=== PATIENT | male | born 1960 | race Caucasian/White ===

== ENCOUNTER 2017-05-29 16:55 | Emergency (ER) | payer OTHER ==
[~2017-05-29] VITALS: Ht 180.3 cm; Wt 119.2 kg
[~2017-05-29 16:55] MED LIST: ATOR-24 PO; HYOS0.1256 SL; IBUP-103 PO; MULTTAB58 PO; PHEN-549 PO
[2017-05-29 17:00] VITALS: TEMP 36.7; Ht 180.3 cm; Wt 119.2 kg
[2017-05-29] MEDS ORDERED: SODIUM CHLORIDE 0.9% 1000ML 1,000 ML IV STA (17:16)
[2017-05-29] MEDS ORDERED: ONDANSETRON INJ 2 MG/ML 2 ML VIAL IV STA (17:16)
[2017-05-29 17:24] LABS: BASO % 0.2 %; BASO ABS # 0.01 K/uL (0-0.2); COMPLETE YES; EOS % 0.2 %; HEMATOCRIT 45.2 % (42-52); IG% 0.2 %; LYMPH % 8.3 %; LYMPH ABS # 0.53 K/uL (1.2-3.4); MEAN CORPUSCULAR HEMOGLOBIN 30.7 pg (25-34); MEAN CORPUSCULAR HGB CONC 34.1 g/dl (32-36); MEAN PLATELET VOLUME 10.1 fL (7.4-10.4); MONO % 5.3 %; NEUT % 85.8 %; PLATELET COUNT 170 K/uL (130-400); RED BLOOD COUNT 5.02 M/uL (4.7-6.1); WHITE BLOOD COUNT 6.36 K/uL (4.8-10.8)
[2017-05-29] MEDS ORDERED: OPTIRAY 320 IV PRN (17:30)
[2017-05-29] MEDS ORDERED: PRLSR20 PO (17:43)
[2017-05-29] MEDS ORDERED: RISP1TAB68 PO (17:43)
[2017-05-29] MEDS ORDERED: CLON0.5T3 PO (17:43)
[2017-05-29] MEDS ORDERED: SNQ/25 PO ×3 (17:43)
[2017-05-29 17:44] LABS: URINE APPEARANCE CLEAR (CLEAR); URINE BILIRUBIN NEG (NEG); URINE COLOR DK YELLOW; URINE EPITHELIAL CELL AUTO >30 /lpf (0-5); URINE NITRITE NEG (NEG); URINE PH 7.5 (4.5-7.5); URINE SPECIFIC GRAVITY 1.026 (1.000-1.030); UROBILINOGEN NEG (NEG); ZZUR CULT IF INDIC CLEAN CATCH NO
[2017-05-29 17:45] LABS: BUN/CREATININE RATIO 12.1 (10-20); CREATININE 1.4 mg/dl (0.60-1.40); POTASSIUM 3.7 mmol/L (3.5-5.1)
[2017-05-29 17:48] LABS: ALB/GLOB RATIO 1.1 (0.9-2)
[2017-05-29] MEDS ORDERED: MoRPHine SULFATE 10 MG/ML CARP/VIAL IV STA ×2 (17:54→19:24)
[2017-05-29 18:01] LABS: MANUAL MICROSCOPIC REQUIRED? NO; REVIEW REQ? YES; SULFASALICYLIC ACID NEG (NEG)
--- NOTE | 2017-05-29 18:41 | DIAGNOSTIC IMAGING REPORT ---
ABDOMEN AND PELVIS CT WITH IV CONTRAST CT DOSE: 1416.68 mGy.cm HISTORY: left sided abdominal pain TECHNIQUE: Multiaxial CT images of the abdomen and pelvis were performed following the use of intravenous contrast. COMPARISON STUDY: Abdomen and pelvis CT 05/27/2014. FINDINGS: The lung bases are essentially clear. Small bilateral fat-containing inguinal hernias, left greater than right. The liver, gallbladder, spleen, adrenal glands, and pancreas are unremarkable. Normal left kidney. Moderate right perinephric edema. Mild right hydronephrosis secondary to an obstructing 3 mm stone within the proximal right ureter on image 57. The bladder is decompressed but appears unremarkable. No left-sided hydronephrosis. No bowel wall thickening or obstruction. A few colonic diverticula. Normal appendix. IMPRESSION: Mild right hydronephrosis secondary to an obstructing 3 mm stone within the proximal right ureter. Electronically signed by: Oli Boyce M.D. 05/29/2017 6:40 PM Dictated Date/Time: 05/29/2017 6:35 PM
[2017-05-29] MEDS ORDERED: KETOROLAC TROMETHAMINE 30 MG/ML VIAL IV STA (19:24)
[2017-05-29] MEDS ORDERED: OXYCODONE IR HOME PACK PO ONE (19:30)
[2017-05-29] MEDS ORDERED: TAMSULOSIN HCL 0.4 MG CAP PO ONE (19:30)
[2017-05-29] MEDS ORDERED: ONDANSETRON HOME PACK 4MG OD TAB PO ONE (19:30)
[2017-05-29] MEDS ORDERED: TAMS0.4C38 PO (20:21)
[2017-05-29] MEDS ORDERED: ONDA4TAB10 SL (20:21)
[2017-05-29] MEDS ORDERED: OXYC1TAB3 PO (20:21)
--- NOTE | 2017-05-29 20:22 | EMERGENCY ROOM VISIT NOTE ---
History First contact with patient: 17:02 Chief Complaint: ABDOMINAL PAIN Stated Complaint: BAD BELLY PAIN Nursing Triage Summary: pt reports abd pain all over abd. vomiting, pain started after breakfast at 0730. states diarrhea clear liquid History of Present Illness The patient is a 56 year old male who presents to the Emergency Room with complaints of abdominal pain across the middle of his abdomen. He states that the pain started after eating cereal for breakfast this morning. He has a history of IBS but states this pain feels different. He rates the discomfort a 9/10 and describes it as a sensation of pressure. The pain has gradually worsened throughout the day. He had one episode of vomiting approximately 45 minutes ago. He states the pain came on suddenly this morning. He denies any history of abdominal surgery. He denies any changes in bowel movements, urinary symptoms or fevers/chills. Review of Systems A complete 10 point review of systems was reviewed with the patient with pertinent positives and negatives as per history of present illness. All else were negative. Social History Smoking Status: Never Smoker Current/Historical Medications Scheduled Atorvastatin (Lipitor), 40 MG PO DAILY Clonazepam (Klonopin), 0.5 MG PO UD Doxepin (Sinequan), 25 MG PO QAM Doxepin (Sinequan), 25 MG PO WITH LUNCH Doxepin (Sinequan), 50 MG PO HS Multiple Vitamin (Multivitamin), 1 TAB PO DAILY Omeprazole (Prilosec), 20 MG PO DAILY Ondasetron Odt (Zofran Odt), 4 MG SL Q6H Risperidone (Risperdal), 1 MG PO BID Tamsulosin Hcl (Flomax), 0.4 MG PO DAILY Scheduled PRN Hyoscyamine Sulfate (Levsin/Sl), 0.125 MG SL Q4H PRN for Abdominal Pain Ibuprofen Tab (Advil), 400-800 MG PO Q6H PRN for Pain Oxycodone Ir (Roxicodone Ir), 1-2 TAB PO Q4H PRN for Pain Allergies Coded Allergies: No Known Allergies (Unverified , 05/27/14) Physical Exam Vital Signs Date Time Temp Pulse Resp B/P (MAP) Pulse Ox O2 Delivery O2 Flow Rate FiO2 05/29/17 20:47 69 18 147/76 95 Room Air 05/29/17 19:36 61 16 169/72 94 Room Air 05/29/17 19:00 56 18 174/92 93 Room Air 05/29/17 17:00 36.7 59 16 156/91 95 Room Air Physical Exam VITALS: Vitals are noted on the nurse's note and reviewed by myself. Vital signs stable. GENERAL: This is a 56-year-old male, in no acute distress, nondiaphoretic, well- developed well-nourished. HEART: Regular rate and rhythm without murmurs gallops or rubs. LUNGS: Clear to auscultation bilaterally without wheezes, rales or rhonchi. ABDOMEN: Positive bowel sounds x 4. Soft, tenderness to palpation of the left middle and lower quadrants. No guarding or rebound tenderness. NEURO: Patient was alert and oriented to person place and time. Medical Decision & Procedures ER Provider Diagnostic Interpretation: ABDOMEN AND PELVIS CT WITH IV CONTRAST CT DOSE: 1416.68 mGy.cm HISTORY: left sided abdominal pain TECHNIQUE: Multiaxial CT images of the abdomen and pelvis were performed following the use of intravenous contrast. COMPARISON STUDY: Abdomen and pelvis CT 05/27/2014. FINDINGS: The lung bases are essentially clear. Small bilateral fat-containing inguinal hernias, left greater than right. The liver, gallbladder, spleen, adrenal glands, and pancreas are unremarkable. Normal left kidney. Moderate right perinephric edema. Mild right hydronephrosis secondary to an obstructing 3 mm stone within the proximal right ureter on image 57. The bladder is decompressed but appears unremarkable. No left-sided hydronephrosis. No bowel wall thickening or obstruction. A few colonic diverticula. Normal appendix. IMPRESSION: Mild right hydronephrosis secondary to an obstructing 3 mm stone within the proximal right ureter. Laboratory Results 05/29/17 17:15 Red Blood Count 5.02, Mean Corpuscular Volume 90.0, Mean Corpuscular Hemoglobin 30.7, Mean Corpuscular Hemoglobin Concent 34.1, Mean Platelet Volume 10.1, Neutrophils (%) (Auto) 85.8, Lymphocytes (%) (Auto) 8.3, Monocytes (%) (Auto) 5.3, Eosinophils (%) (Auto) 0.2, Basophils (%) (Auto) 0.2, Neutrophils # (Auto) 5.46, Lymphocytes # (Auto) 0.53, Monocytes # (Auto) 0.34, Eosinophils # (Auto) 0.01, Basophils # (Auto) 0.01 05/29/17 17:15 Test 05/29/17 17:15 05/29/17 17:30 White Blood Count 6.36 K/uL (4.8-10.8) Red Blood Count 5.02 M/uL (4.7-6.1) Hemoglobin 15.4 g/dL (14.0-18.0) Hematocrit 45.2 % (42-52) Mean Corpuscular Volume 90.0 fL (80-100) Mean Corpuscular Hemoglobin 30.7 pg (25-34) Mean Corpuscular Hemoglobin Concent 34.1 g/dl (32-36) Platelet Count 170 K/uL (130-400) Mean Platelet Volume 10.1 fL (7.4-10.4) Neutrophils (%) (Auto) 85.8 % Lymphocytes (%) (Auto) 8.3 % Monocytes (%) (Auto) 5.3 % Eosinophils (%) (Auto) 0.2 % Basophils (%) (Auto) 0.2 % Neutrophils # (Auto) 5.46 K/uL (1.4-6.5) Lymphocytes # (Auto) 0.53 K/uL (1.2-3.4) Monocytes # (Auto) 0.34 K/uL (0.11-0.59) Eosinophils # (Auto) 0.01 K/uL (0-0.5) Basophils # (Auto) 0.01 K/uL (0-0.2) RDW Standard Deviation 45.0 fL (36.4-46.3) RDW Coefficient of Variation 13.6 % (11.5-14.5) Immature Granulocyte % (Auto) 0.2 % Immature Granulocyte # (Auto) 0.01 K/uL (0.00-0.02) Anion Gap 8.0 mmol/L (3-11) Est Creatinine Clear Calc Drug Dose 79.2 ml/min Estimated GFR () 65.6 Estimated GFR (Non- 56.6 BUN/Creatinine Ratio 12.1 (10-20) Calcium Level 9.0 mg/dl (8.5-10.1) Total Bilirubin 0.7 mg/dl (0.2-1) Aspartate Amino Transf (AST/SGOT) 37 U/L (15-37) Alanine Aminotransferase (ALT/SGPT) 65 U/L (12-78) Alkaline Phosphatase 99 U/L (45-117) Total Protein 7.0 gm/dl (6.4-8.2) Albumin 3.6 gm/dl (3.4-5.0) Globulin 3.4 gm/dl (2.5-4.0) Albumin/Globulin Ratio 1.1 (0.9-2) Lipase 227 U/L (73-393) Urine Color DK YELLOW Urine Appearance CLEAR (CLEAR) Urine pH 7.5 (4.5-7.5) Urine Specific [place] 1.026 (1.000-1.030) Urine Protein NEG (NEG) Urine Glucose (UA) NEG (NEG) Urine Ketones TRACE (NEG) Urine Occult Blood 2+ (NEG) Urine Nitrite NEG (NEG) Urine Bilirubin NEG (NEG) Urine Urobilinogen NEG (NEG) Urine Leukocyte Esterase NEG (NEG) Urine WBC (Auto) 1-5 /hpf (0-5) Urine RBC (Auto) 5-10 /hpf (0-4) Urine Hyaline Casts (Auto) 5-10 /lpf (0-5) Urine Epithelial Cells (Auto) >30 /lpf (0-5) Urine Bacteria (Auto) NEG (NEG) Urine Renal Epithelial Cells /lpf (0-5) Medications Administered Medications (Trade) Dose Ordered Sig/Sal Route Start Time Stop Time Status Last Admin Dose Admin Sodium Chloride 1,000 ml @ 999 mls/hr Q1H1M STAT IV 05/29/17 17:16 05/29/17 18:16 DC 05/29/17 17:25 999 MLS/HR Ondansetron HCl (Zofran Inj) 4 mg NOW STAT IV 05/29/17 17:16 05/29/17 17:18 DC 05/29/17 17:25 4 MG Morphine Sulfate (MoRPHine SULFATE INJ) 6 mg NOW STAT IV 05/29/17 17:54 05/29/17 17:55 DC 05/29/17 18:03 6 MG Ketorolac Tromethamine (Toradol Inj) 30 mg NOW STAT IV 05/29/17 19:24 05/29/17 19:29 DC 05/29/17 19:35 30 MG Morphine Sulfate (MoRPHine SULFATE INJ) 6 mg NOW STAT IV 05/29/17 19:24 05/29/17 19:29 DC 05/29/17 19:35 6 MG Oxycodone HCl (Roxicodone Immediate Rel 5MG Home Pack) 1 homepack UD ONCE PO 05/29/17 19:30 05/29/17 19:32 DC 05/29/17 19:30 1 HOMEPACK Ondansetron HCl (ZOFRAN ODT 4MG Home Pack) 1 homepack UD ONCE PO 05/29/17 19:30 05/29/17 19:32 DC 05/29/17 19:30 1 HOMEPACK Tamsulosin HCl (Flomax Cap) 0.4 mg NOW ONCE PO 05/29/17 19:30 05/29/17 19:32 DC 05/29/17 19:30 0.4 MG ED Course The patient was evaluated as above. Labs were drawn and IV access was obtained. Patient was medicated with 1 L normal saline solution and 4 mg Zofran IV. He initially declined analgesics. Patient was having increased pain and requested something for the pain. He was given [address] of the abdomen and pelvis was performed and read by radiology as above. Patient was reevaluated and had some relief, but stated his pain was returning. He was now given 6 more grams morphine and 30 mg Toradol IV. Patient was reassessed and felt much better. Findings were discussed. He will be discharged home. Discharge instructions were reviewed with the patient. The patient verbalized understanding of my assessment and treatment plan and was discharged home in good condition. Medical Decision Differential diagnosis includes pyelonephritis, kidney stone, gastroenteritis, colitis, diverticulitis, bowel obstruction, among others. The patient is a 56-year-old male who presents today complaining of abdominal pain. Labs revealed no leukocytosis, anemia or concerning electrolyte abnormalities. Urinalysis was positive for blood with no evidence of infection. CT showed a 3 mm ureteral stone. The patient's pain was well controlled here with morphine and Toradol. He will be discharged home with pain medication, Zofran and Flomax. He was given instructions to follow up with his primary care provider or urology as needed. He will return here for worsening pain. Based on the patient's presentation and work up, I feel the patient is stable for outpatient treatment. The patient was educated to return to the emergency department for any worsening of their current condition or new/concerning symptoms. He will follow up with his primary care provider. Medication reconciliation: I attest that I have personally reviewed the patient 's current medication list. Blood pressure screening: Patient was found to have an elevated blood pressure and was referred to their primary doctor for recheck and further treatment. [place] Drug Monitoring Program Search Results: patient reviewed within database, no issues identified Impression Primary Impression: Ureteral calculus Departure Information Dispostion Home / Self-Care Condition GOOD Prescriptions Tamsulosin Hcl (FLOMAX) 0.4 Mg Cap 0.4 MG PO DAILY for 10 Days, #10 CAP Prov: Rody Gomez PA-C 05/29/17 Ondasetron Odt (ZOFRAN ODT) 4 Mg Tab 4 MG SL Q6H for Nausea, #15 TAB Prov: Rody Gomez PA-C 05/29/17 Oxycodone Ir (Roxicodone Ir) 5 Mg Tab 1-2 TAB PO Q4H Y for Pain, #20 TAB For Initial Treatment Prov: Rody Gomez PA-C 05/29/17 Referrals Aamir Sher III, M.D. (PCP) Hesham Mulligan M.D. Patient Instructions My [facility] Additional Instructions You have been treated in the Emergency Department today for a Kidney Stone ( Nephrolithiasis). You have received pain medicine in the emergency department which impairs your ability to operate a vehicle. It is illegal for you to drive after receiving these medicines. You have been prescribed OxyIR to be used for pain control. This is a narcotic medication. You cannot drive or consume alcohol while on this medicine. This medicine should only be used for pain that cannot be controlled with over-the- counter pain medicines. You have been prescribed Zofran to be used for any nausea or vomiting. Take as prescribed. You have been prescribed Flomax 0.4 mg to be taken ONCE daily. This medicine has been prescribed as it can help relax the smooth muscles of the urinary tract increasing transit time of the kidney stone. For pain control, you can use the following [id number] medicines (if >12 yo): - Regular strength (325mg/tab) Tylenol (acetaminophen) 2 tabs every 4-6 hours as needed. Do not exceed 12 tablets in a 24 hour period. Avoid taking more than 4 grams (4000 mg) of Tylenol per day. This includes any other sources of acetaminophen you may take on a regular basis. - Regular strength (200 mg/tab) Advil (ibuprofen) 1-2 tabs every 4-6 hours as needed. Do not exceed a dose of 3200 mg per day. You have been provided a strainer and specimen collection cup. You should strain your urine to collect any passed stones. Your stones can be placed into the specimen cup and taken to your Urologist for further evaluation. You have been provided the contact information for the on-call Urologist. You should contact the Urologist's office tomorrow to establish a follow-up appointment from today's Emergency Department visit. Return to the Emergency Department if your symptoms persist despite the treatment plan outlined above or if you develop the following symptoms: intractable pain, fever, chills, or large amounts of blood in your urine.
[2017-05-29 20:47] VITALS: BP 147/76; PULSE 69; O2SAT 95
== END 2017-05-29 20:47 | disposition home or self-care (01) ==
LOC: C.EDB 16:56 → C.EDA 20:47
DX: N20.1 Calculus of ureter (principal); Z79.899 Other long term (current) drug therapy

== ENCOUNTER → 2018-01-03 | Outpatient (CLI) | payer OTHER ==
[~2018-01-03] MED LIST changes: +CLON0.5T3 PO; -PHEN-549 PO; +PRLSR20 PO; +RISP1TAB68 PO; +SNQ/25 PO
[2018-01-03 12:37] LABS: BASO % 0.2 %; BASO ABS # 0.01 K/uL (0-0.2); EOS % 2.4 %; EOS ABS # 0.11 K/uL (0-0.5); HEMATOCRIT 45.1 % (42-52); HEMOGLOBIN 15.3 g/dL (14.0-18.0); IG# 0.01 K/uL (0.00-0.02); LYMPH % 20.5 %; LYMPH ABS # 0.94 K/uL (1.2-3.4); MEAN CORPUSCULAR HEMOGLOBIN 31.5 pg (25-34); MEAN CORPUSCULAR HGB CONC 33.9 g/dl (32-36); MEAN PLATELET VOLUME 10.6 fL (7.4-10.4); MONO % 8.9 %; MONO ABS # 0.41 K/uL (0.11-0.59); NEUT % 67.8 %; NEUT ABS # 3.11 K/uL (1.4-6.5); PLATELET COUNT 132 K/uL (130-400); RED CELL DISTRIBUTION WIDTH CV 13.4 % (11.5-14.5); RED CELL DISTRIBUTION WIDTH SD 45.5 fL (36.4-46.3); WHITE BLOOD COUNT 4.59 K/uL (4.8-10.8)
[2018-01-03 12:45] LABS: ALBUMIN 3.4 gm/dl (3.4-5.0); ALT/SGPT 55 U/L (12-78); AST/SGOT 29 U/L (15-37); BLOOD UREA NITROGEN 19 mg/dl (7-18); CALCIUM 8.5 mg/dl (8.5-10.1); CARBON DIOXIDE 29 mmol/L (21-32); GLUCOSE 86 mg/dl (70-99); POTASSIUM 4.3 mmol/L (3.5-5.1); SODIUM 140 mmol/L (136-145)
[2018-01-03 12:55] LABS: ALKALINE PHOSPHATASE 106 U/L (45-117); CHOLESTEROL 133 mg/dl (0-200); LDL CHOLESTEROL CALCULATED 76 mg/dl; TOTAL PROTEIN 6.7 gm/dl (6.4-8.2)
== END | disposition home or self-care (01) ==
LOC: C.LAB 11:04
PROVIDERS: ATTEND Psychiatry & Neurology Geriatric Psychiatry
DX: Z51.81 Encounter for therapeutic drug level monitoring (principal); Z79.899 Other long term (current) drug therapy